=== PATIENT | female | born 1995 | race Caucasian/White ===

== ENCOUNTER 2022-10-17 07:08 | Day surgery (SDC) | payer MEDICAID ==
[2022-10-16 09:48] LABS: HCG,QUAL RESULT NEGATIVE (NEGATIVE)
[~2022-10-17] VITALS: Ht 157.5 cm; Wt 54.4 kg
[2022-10-17] MEDS ORDERED: fentaNYL CITRATE/PF 100 MCG/2 ML AMP ONE (07:15)
[2022-10-17] MEDS ORDERED: MIDAZOLAM HCL 5 MG/5 ML VIAL ONE (07:16)
[2022-10-17 11:50] VITALS: BP_SYST 99
== END 2022-10-17 09:20 | disposition home or self-care (01) ==
LOC: SDS 07:08 → SMU 07:10 → SDS 09:20
PROVIDERS: ATTEND Internal Medicine
DX: R10.13 Epigastric pain (principal); K29.50 Unspecified chronic gastritis without bleeding; K29.80 Duodenitis without bleeding; Z79.899 Other long term (current) drug therapy; Z20.822 Contact with and (suspected) exposure to COVID-19
CPT/HCPCS: 84703; 36415 ×2; 43239; 87081; 88305; 88312; 88313; 99152; U0003; G0378; J2250; J3010